=== PATIENT | male | born 1970 | race Caucasian/White ===

== ENCOUNTER 2016-12-22 12:51 | Emergency (ER) | payer OTHER ==
[~2016-12-22] VITALS: Ht 180.3 cm; Wt 109.1 kg
[~2016-12-22 12:51] MED LIST: CIPR500T95; OMEP40CA3; SMV40T; TAM4
[2016-12-22 12:53] VITALS: BP 151/93; PULSE 80; RESP 20; O2SAT 97
--- NOTE | 2016-12-22 13:25 | DRSVH ---
PROCEDURE: X-RAY CHEST ONE VIEW, PORTABLE ([id number]) INDICATIONS: CHEST PAIN TECHNIQUE: One view of the chest was acquired. COMPARISON: [facility], RG, XR CXR 1 VIEW, 06/09/2004, 14:26. FINDINGS: Surgical changes and devices: None. Lungs and pleura: No pleural effusions or pneumothorax. Lungs are clear. Mediastinum: Mediastinal contours appear normal. Heart size is normal. Bones and chest wall: No suspicious bony lesions. Overlying soft tissues appear unremarkable. IMPRESSION: No acute cardiopulmonary disease process. Dictated by: Esperanza Cervantes MD, PhD on 12/22/2016 at 13:23 Approved by: Esperanza Cervantes MD, PhD on 12/22/2016 at 13:24
--- NOTE | 2016-12-22 15:05 | ED.REPORT ---
HPI-Chest Pain 40 and Over Date of Service Dec 22, 2016 ED Provider: Dr. Silva Pt is a generally healthy 46 y/o male presenting to the ED c/o CP onset 12:10 today. The patient woke up this morning with a painful neck described as a crick in his neck and while sitting at work he experienced the pain radiate from his neck into his left chest and shoulder which caused associated lightheadedness. His pain has significantly improved since onset and is rated 3/ 10 at current time. Pt denies any nausea, diaphoresis, SOB, pleuritic pain. He has no personal or family history of cardiac disease, he has never smoked, and has no history of DM or HTN. There is no history of PE or DVT. He did have HLD previously but it resolved after he lost weight. He took some of his 's naproxen today but no ASA. Nursing Notes Stated Complaint: CHEST/ARM PAIN Chief Complaint: Chest Pain Nursing Notes Reviewed: Yes Allergies: Coded Allergies: No Known Allergies (Verified , 12/15/07) Miscellaneous Medications Ciprofloxacin (Cipro) 500 Mg Tablet Omeprazole-Expunged Drug, Do Not Renew! (Omeprazole-Expunged Drug, Do Not Renew! ) 40 Mg Capsule. Simvastatin-Expunged Drug, Choose New Med! (Simvastatin-Expunged Drug, Choose New Med!) 40 Mg Tablet Tamsulosin-Expunged Drug, Do Not Renew! (Flomax-Expunged Drug, Do Not Renew!) 0.4 Mg Capsule General Time Seen by MD: 15:37 Chief Complaint Chest pain Hx Obtained From: Patient Arrived By: Walk-in Sudden in Onset?: Yes Onset Occurred: 1 - 4 hours ago Symptom Duration: Since onset Location: : Chest left Quality: Painful Radiation: : Shoulder left Severity: Current: Pain level 3 out of 10 Severity: Maximum: Moderate Recent Healthcare: No recent doctor visit, No recent hospitalization Similar Sx Previous: No Risk Factors HEART Score HEART for MACE: Mod index of susp (1), Normal ECG (0), Age 45 - 65 (1), No risk factors known (0) PERC Rule PERC Result: PERC rule satisfied Well's Criteria for PE Well's PE Score: 0-2 pts (low risk 3.6%) Past Medical History Past Medical History Hx of hyperlipidemia resolved after weight loss Otherwise denies Past Surgical History None reported Smoking History Never Smoker Ambulatory Status Independent Review of Systems Constitutional: Denies: Fever Respiratory: Denies: Non-productive cough, Pleuritic pain, Shortness of breath Cardiovascular: Reports: Chest pain GI: Denies: Nausea, Vomiting Musculoskeletal: Reports: Neck pain Complete sys rev & neg: except as marked. Physical Exam Initial Vital Signs Vital Signs (First) Date Time Temp Pulse Resp B/P Pulse Ox O2 Delivery O2 Flow Rate FiO2 12/22/16 12:53 36.6 80 20 151/93 97 Room Air Initial VS: Reviewed, Vital signs normal Head / Eyes: Atraumatic, Normocephalic, PERRL ENT: Mucous membranes moist, Conjunctiva normal, No scleral icterus Neck: Supple, Full range of motion Extremities: Vascular intact, Neuro intact, No swelling Skin: Warm, Dry, No cyanosis Neurologic: Alert, Oriented, Nonfocal Psychiatric: Mood/affect normal, Behavior normal, Normal thought content General/Constitutional: Awake, Alert, No acute distress, Well appearing, Cooperative, Not toxic appearing Respiratory / Chest: Breath sounds NL, Breath sounds = bilat, No respiratory distress, No rales, No rhonchi, No wheezing Cardiovascular: Heart rate NL, Regular rhythm, Heart sounds NL, No murmurs Abdomen: Atraumatic, Soft, Non-tender, No guarding, No rebound, No distention Interpretation & Diagnostics Lab Results Interpretation Result Diagram: 12/22/16 1541 12/22/16 1541 Test 12/22/16 15:41 White Blood Count 5.7th/mm3 (3.8-10.1) Red Blood Count 5.20mil/mm3 (4.40-5.80) Hemoglobin 14.3g/dL (13.8-17.2) Hematocrit 43.3% (41.0-50.0) Mean Corpuscular Volume 83.3fL (81-100) Mean Corpuscular Hemoglobin 27.5pg (27.0-35.0) Mean Corpuscular Hemoglobin Concent 33.0% (32.0-37.0) Red Cell Distribution Width 13.4% (12.3-15.4) Platelet Count 234bil/L (150-400) Neutrophils (%) (Auto) 43.6% (40-74) Lymphocytes (%) (Auto) 42.4% (14-46) Monocytes (%) (Auto) 10.2% (4-12) Eosinophils (%) (Auto) 3.2% (0-5) Basophils (%) (Auto) 0.4% (0-3) Sodium Level 140mEq/L (134-144) Potassium Level 4.2mEq/L (3.5-5.2) Chloride Level 102mEq/L (97-108) Carbon Dioxide Level 23mmol/L (18-29) Blood Urea Nitrogen 17mg/dL (6-24) Creatinine 0.79mg/dL (0.76-1.27) Estimat Glomerular Filtration Rate 111mL/min (>59) Glucose Level 98mg/dL (60-99) Calcium Level 9.0mg/dL (8.5-10.1) Magnesium Level 2.0mg/dL (1.6-2.6) Total Bilirubin 0.2mg/dL (0.0-1.2) Aspartate Amino Transf (AST/SGOT) 30U/L (0-50) Alanine Aminotransferase (ALT/SGPT) 39U/L (0-44) Alkaline Phosphatase 57U/L (25-150) Troponin T < 0.010ug/L (0.0-0.011) Total Protein 6.9g/dL (6.4-8.4) Albumin 4.0g/dL (3.4-5.0) Hold Velásquez Top Tube Received (Received) ECG Interpretation Time: 15:15 Interpreted by: ED physician Normal ECG Interpretation: Normal ECG w/ rate of... (70), Normal rate, Normal sinus rhythm, No acute ischemic changes, Normal QRS, Normal axis, Normal intervals, Adequate tracing X-Ray Chest Interpretation Chest Xray Interpretation: IMPRESSION: No acute cardiopulmonary disease process. Dictated by: Esperanza Cervantes MD, PhD on 12/22/2016 at 13:23 Approved by: Esperanza Cervantes MD, PhD on 12/22/2016 at 13:24 View: Portable, 1 view Interpretation / Wet Read by: Interpret - Radiologist Re-Eval/Medical Decision Time of Eval: 16:13 Re-Evaluation/Progress Note: The patient would like to leave prior to labs being resulted and if any are abnormal labs he would come back promptly. F/U instructions and RTER warnings given. All questions addressed. Counseled Regarding: Diagnosis, Lab results, Need for follow-up, When/why to return to ED Discharge & Departure Primary Impression: Chest pain Chest pain type: unspecified Qualified Code: R07.9 - Chest pain, unspecified Additional Impression: Neck pain Disposition: Home Discharge Condition All VS Reviewed: Yes Condition: Stable Patient Instructions: Chest Pain (ED) Additional Instructions: No dangerous cause for the chest symptom was discovered today. The heart enzyme value is still pending at this time but I expect that it will likely be negative (normal). I will call you with the results. If the result is abnormal I will want you to return to the emergency department for hospital admission. Otherwise, I recommend follow-up with Ms. Gege PA-C in the coming days for further evaluation as needed. I did call the patient back and informed him of the normal troponin. Referrals: Hortencia De Guzman (PCP) Scribe Attestation Portions of this note were transcribed by Abdirizak Piedra. I, Dr. Silva personally performed the history, physical exam and medical decision-making; I reviewed and confirmed the accuracy of the information in the transcribed note. copies to: Hortencia De Guzman Kirk H MD Dec 22, 2016 15:05 ABDIRIZAK PIEDRA Dec 22, 2016 15:19
[2016-12-22 15:54] LABS: BASOPHILS % (AUTO) 0.4 % (0-3); EOSINOPHILS % (AUTO) 3.2 % (0-5); MONOCYTES % (AUTO) 10.2 % (4-12); Mean Corpuscular Hemoglobin 27.5 pg (27.0-35.0); Mean Corpuscular Volume 83.3 fL (81-100); NEUTROPHILS % (AUTO) 43.6 % (40-74); Platelet Count 234 bil/L (150-400)
[2016-12-22 16:16] VITALS: BP 152/100; PULSE 66; RESP 20; O2SAT 99
[2016-12-22 16:23] LABS: TROPONIN T < 0.010 ug/L (0.0-0.011)
== END 2016-12-22 16:15 | disposition home or self-care (01) ==
LOC: SED 12:51
DX: R07.9 Chest pain, unspecified (principal); M54.2 Cervicalgia; R42 Dizziness and giddiness